=== PATIENT | female | born 1965 | race Two or more races ===

== ENCOUNTER 2018-05-20 17:40 | Emergency (ER) | payer OTHER ==
[~2018-05-20] VITALS: Ht 162.6 cm; Wt 59.0 kg
[~2018-05-20 17:40] MED LIST: ARMOUR THYROID15 MG; TRAMADOL HCL50 MG PO
[2018-05-20] MEDS ORDERED: SYNTHROID100 MCG (17:49)
== END 2018-05-20 22:01 | disposition home or self-care (01) ==
LOC: ER 17:40
DX: K29.70 Gastritis, unspecified, without bleeding (principal)

== ENCOUNTER 2018-07-04 12:11 | Emergency (ER) | payer OTHER ==
[~2018-07-04] VITALS: Ht 162.6 cm; Wt 59.9 kg
[~2018-07-04 12:11] MED LIST changes: +SYNTHROID100 MCG
== END 2018-07-04 14:25 | disposition home or self-care (01) ==
LOC: ER 12:11
DX: B34.9 Viral infection, unspecified (principal)

== ENCOUNTER 2023-01-03 17:48 | Emergency (ER) | payer OTHER ==
[~2023-01-03] VITALS: Ht 162.6 cm; Wt 59.0 kg
[2023-01-03] MEDS ORDERED: ANASTROZOLE1 MG PO (18:40)
[2023-01-03] MEDS ORDERED: ANTIVERT25 M2 PO (23:57)
== END 2023-01-04 00:23 | disposition home or self-care (01) ==
LOC: ER 17:48
DX: R42 Dizziness and giddiness (principal)

== ENCOUNTER 2023-10-03 17:05 | Emergency (ER) | payer OTHER ==
[~2023-10-03] VITALS: Ht 162.6 cm; Wt 58.1 kg
[~2023-10-03 17:05] MED LIST changes: +ANASTROZOLE1 MG PO; +ANTIVERT25 M2 PO
[2023-10-03 19:40] LABS: HEMATOCRIT 39.1 % (36.0-45.00); HEMOGLOBIN 13.6 g/dL (12.0-15.00); MEAN CELL VOLUME 92.4 fL (80.00-100.00); MEAN CORPUSCULAR HEMOGLOBIN 32.1 pg (27.00-32.0); MEAN CORPUSCULAR HGB CONC 34.7 g/dl (32.0-36.0); PLATELET COUNT 345 K/uL (150-450); RED BLOOD COUNT 4.23 M/uL (4.00-6.00); RED CELL DISTRIBUTION WIDTH 13.1 % (11.5-14.5)
== END 2023-10-03 21:07 | disposition home or self-care (01) ==
LOC: ER 17:06
PROVIDERS: General Practice
DX: K11.20 Sialoadenitis, unspecified (principal); Z88.6 Allergy status to analgesic agent; Z91.013 Allergy to seafood; Z91.041 Radiographic dye allergy status

== ENCOUNTER 2024-05-23 17:15 | Emergency (ER) | payer OTHER ==
[~2024-05-23] VITALS: Ht 162.6 cm; Wt 61.2 kg
[2024-05-23] MEDS ORDERED: DEXAMETHASONE SODIUM PHOSP/PF 10 MG/ML VIAL IJ STA (18:45)
[2024-05-23] MEDS ORDERED: ORPHENADRINE CITRATE 30 MG/ML AMPUL IM STA (18:46)
[2024-05-23] MEDS ORDERED: ORPHENADRINE CITRATE 30 MG/ML AMPUL ONE ×2 (19:21→19:33)
[2024-05-23] MEDS ORDERED: DEXAMETHASONE SODIUM PHOSPHATE 4 MG/ML VIAL ONE (19:21)
[2024-05-23] MEDS ORDERED: DEXAMETHASONE SODIUM PHOSPHATE 4 MG/ML VIAL IM STA (19:33)
== END 2024-05-23 21:49 | disposition home or self-care (01) ==
LOC: ER 17:17
DX: R52 Pain, unspecified (principal); Z88.6 Allergy status to analgesic agent; Z91.013 Allergy to seafood; Z91.041 Radiographic dye allergy status

== ENCOUNTER 2024-08-20 16:05 | Emergency (ER) | payer OTHER ==
[~2024-08-20] VITALS: Ht 162.6 cm; Wt 61.7 kg
[2024-08-20 16:50] VITALS: BP 125/71; O2SAT 98
[2024-08-20] MEDS ORDERED: DEXAMETHASONE SODIUM PHOSPHATE 4 MG/ML VIAL IM ONE (18:30)
[2024-08-20] MEDS ORDERED: CYCLOBENZAPRINE10 MG PO (18:44)
== END 2024-08-20 18:53 | disposition home or self-care (01) ==
LOC: ER 16:08
DX: S39.82XA Other specified injuries of lower back, initial encounter (principal); W18.31XA Fall on same level due to stepping on an object, initial encounter; Y93.89 Activity, other specified; Y92.413 State road as the place of occurrence of the external cause; M54.50 Low back pain, unspecified; Z85.3 Personal history of malignant neoplasm of breast; Z88.6 Allergy status to analgesic agent; Z91.013 Allergy to seafood; Z91.041 Radiographic dye allergy status; E03.8 Other specified hypothyroidism
CPT/HCPCS: 71110; 73501; 96372; 99283; J1100

== ENCOUNTER 2025-01-14 15:35 | Emergency (ER) | payer OTHER ==
[~2025-01-14] VITALS: Ht 162.6 cm; Wt 60.8 kg
[~2025-01-14 15:35] MED LIST changes: +CYCLOBENZAPRINE10 MG PO
[2025-01-14 18:47] LABS: BASO % 0.8 % (0.1-1.2); EOS # 0.22 (0.04-0.54); EOS % 3.1 % (0.7-7.0); HEMATOCRIT 40.1 % (34.1-44.9); HEMOGLOBIN 14.3 g/dL (11.2-15.7); LYMPH # 1.67 (1.18-3.74); LYMPH % 23.6 % (19.3-53.1); MEAN CORPUSCULAR HEMOGLOBIN 31.6 pg (25.6-32.2); MONO # 0.44 (0.24-0.82); MONO % 6.2 % (4.7-12.5); NEUT # 4.67 (1.56-6.13); NEUT % 66.2 % (34.0-71.1); PLATELET COUNT 349 K/uL (163-369); RED BLOOD COUNT 4.52 M/uL (3.93-5.22)
[2025-01-14 18:52] LABS: PH,URINE 5.5 (5.0-8.0); URINE APPEARANCE Cloudy; URINE BILIRRUBIN Negative (NEGATIVE); URINE BLOOD Large; URINE COLOR Yellow; URINE GLUCOSE Negative (NEGATIVE); URINE KETONE Negative (NEGATIVE); URINE LEUKOCYTE Large; URINE NITRATE Negative; URINE PROTEIN Negative (NEGATIVE)
[2025-01-14 18:57] LABS: URINE BACTERIA 5286.3 uL (0.0-1933); URINE EPITHELIAL CELLS 65.8 uL (0.0-38.8); URINE WBC 79.9 uL (0.0-23.2)
[2025-01-14 19:19] LABS: CREATININE SERUM 0.91 mg/dL (0.55-1.02); GFR 63.72; POTASSIUM 3.86 mEq/L (3.5-5.1)
[2025-01-14] MEDS ORDERED: CIPROFLOXACIN IN 5 % DEXTROSE 400 MG/200 ML PIGGYBAG IV ONE ×2 (20:15→20:41)
== END 2025-01-15 01:09 | disposition home or self-care (01) ==
LOC: ER 15:35
PROVIDERS: General Practice
DX: E16.2 Hypoglycemia, unspecified (principal); N39.0 Urinary tract infection, site not specified; R31.9 Hematuria, unspecified; E03.8 Other specified hypothyroidism; Z88.6 Allergy status to analgesic agent; Z91.013 Allergy to seafood; Z91.041 Radiographic dye allergy status